=== PATIENT | male | born 1990 | race Native Hawaiian/Other Pacific Islander ===

== ENCOUNTER 2021-12-02 14:24 | Emergency (ER) | payer OTHER ==
[~2021-12-02] VITALS: Ht 167.6 cm; Wt 113.4 kg
[2021-12-02 14:40] VITALS: TEMP 97.8
[2021-12-02 15:00] LABS: PLATELET COUNT 240 K/uL (142-355)
[2021-12-02 15:17] LABS: POTASSIUM 3.7 mmol/L (3.6-5.2)
[2021-12-02 18:47] VITALS: BP 156/85
== END 2021-12-03 01:09 | disposition home or self-care (01) ==
LOC: ED 14:27
PROVIDERS: Emergency Medicine
DX: F19.10 Other psychoactive substance abuse, uncomplicated (principal); T50.902A Poisoning by unspecified drugs, medicaments and biological substances, intentional self-harm, initial encounter; R23.4 Changes in skin texture; Y35.93XA Legal intervention, means unspecified, suspect injured, initial encounter; Y92.89 Other specified places as the place of occurrence of the external cause
CPT/HCPCS: 80053; 80307; 80320; 80329; 85027; 93005; 96360; 96361; 96374; 99284; J2405